=== PATIENT | female | born 1935 | race Caucasian/White ===

== ENCOUNTER 2017-05-06 07:34 | Outpatient (CLI) | payer MEDICARE, OTHER, SELFPAY ==
[2017-05-06 07:36] VITALS: BP 135/70; PULSE 74; RESP 20; TEMP 36.5; O2SAT 98; BMI 15.0
[2017-05-06 18:40] VITALS: BP 127/72; PULSE 87; RESP 20; TEMP 36.1; O2SAT 92
== END 2017-05-06 19:35 | disposition home or self-care (01) ==
PROVIDERS: Family Provider Internal Medicine; PCP Internal Medicine; Visit Provider Nurse Practitioner Gerontology
DX: J47.1 Bronchiectasis with (acute) exacerbation (principal); R05 Cough
CPT/HCPCS: 96365 ×2; J7050; A4216